=== PATIENT | male | born 1945 | race African-American/Black ===

== ENCOUNTER 2018-03-19 11:23 | Inpatient (IN) | payer OTHER ==
[~2018-03-19] VITALS: Ht 188 cm; Wt 50.3 kg
[~2018-03-19 11:23] MED LIST: AMBIEN10 MG PO; CHLORDIAZEPOXI1 EAC1 PO; DIPHENOXYLATE-1 EACH PO; DUONEB3 ML IH; FOLIC ACID; FOLIC ACID1 MG PO; HYDROMORPHONE HC2 MG PO; IRON; K-Dur PO; MEGACE ES625 MG/5 M PO; MOBIC15 MG PO; MORPHINE; NEXIUM; NEXIUM10 MG PO; PERCOCET; PERCOCET 5-3251 EACH PO; PERCOCET 5/31 TABLET PO; PREDNISONE20 MG PO; PROMETHAZINE HC25 M1 PO; PROVENTIL,2.5 MG/3 M IH; THIAMINE,VITAM100 MG PO; TRAVATAN 050 DROP/2. BOTH EYES; VITAMIN B1 PO; ZOLOFT50 M1 PO; [UNRECOGNIZED DRUG - OTHER] PO; [UNRECOGNIZED DRUG - OTHER] PO; [UNRECOGNIZED DRUG - REMARK]
[2018-03-19 12:17] LABS: APPEARANCE CLEAR ((CLEAR)); BILIRUBIN NEGATIVE; BLOOD MODERATE; COLOR YELLOW ((YELLOW)); GLUCOSE (STRIP) 50; KETONES 20; LEUKOCYTES NEGATIVE; NITRITE NEGATIVE; PROTEIN (STRIP) 100; SPECIFIC GRAVITY 1.012 (1.000-1.030); UROBILINOGEN 0.2 MG/DL (0.2-1.0)
[2018-03-19 12:20] LABS: BACTERIA NONE SEEN /HPF; EPITHELIAL CELLS RARE /HPF; HYALINE CASTS 15-20 /LPF; MUCUS TRACE /LPF; UCUL ADDED? NO; WHITE BLOOD CELLS 0-5 /HPF (0-5)
[2018-03-19 12:50] LABS: HEMATOCRIT 36.9 % (38.0-50.0); HEMOGLOBIN 12.8 G/DL (12.5-16.6); MCH 31.6 PG (29.0-34.0); MCHC 34.7 G/DL (30.0-36.0); MCV 91.1 FL (86-99); PLATELET COUNT 156 K/uL (156-360); RBC DIS.WIDTH-CV 15.3 % (11.8-14.6); RBC DIS.WIDTH-SD 49.5 % (39-53); RED BLOOD COUNT 4.05 M/uL (4.00-5.50)
[2018-03-19 13:01] LABS: ALBUMIN 4.3 g/dL (3.2-4.8); CHLORIDE 93 mEq/L (99-109); POTASSIUM 3.2 mEq/L (3.7-5.4); SODIUM 141 mEq/L (136-147)
[2018-03-19 13:03] LABS: GLUCOSE 151 mg/dL (70-99); TOTAL PROTEIN 8.1 g/dL (6.4-8.3)
[2018-03-19 13:05] LABS: TOTAL BILIRUBIN 0.8 mg/dL (0.0-1.0)
[2018-03-19 13:07] LABS: ALKALINE PHOSPHATASE 89 IU/L (3-129); GFR ESTIMATE (CALCULATED) > 59 mL/min/ (58.99-99999)
[2018-03-19 13:08] LABS: UREA NITROGEN (BUN) 10 mg/dL (9-23)
[2018-03-19 13:09] LABS: AST (GOT) 58 IU/L (2-34)
[2018-03-19 13:10] LABS: ALT (GPT) 16 IU/L (3-49); LIPASE 51 U/L (1.0-51.0)
[2018-03-19 13:11] LABS: TROP-I INTERPRETATION NEGATIVE; TROPONIN-I 0.03 ng/mL (0.0-0.30)
[2018-03-19 13:47] LABS: CREATINE KINASE 230 IU/L (1-294); TOTAL CK 230 IU/L (1-294)
[2018-03-19 13:48] LABS: SERUM ETHYL ALCOHOL < 10 mg/dL
[2018-03-19 13:53] LABS: SALICYLATE < 5.0 MG/DL (15-30)
[2018-03-19 13:54] LABS: CK-MB 7.8 ng/mL (0.0-4.9); CKMB RELATIVE INDEX 3.4 (0.0-3.9)
[2018-03-19] MEDS ORDERED: EXCEDRIN MIGRA1 EAC3 PO (15:32)
[2018-03-19] MEDS ORDERED: FOLIC ACID1 MG PO (15:32)
[2018-03-19] MEDS ORDERED: PERCOCET 5/31 TABLET PO (15:33)
[2018-03-19 19:39] VITALS: BP 136/80
[2018-03-20] VITALS (7 sets, daily range): BP systolic 99–141; BP diastolic 56–76
[2018-03-20 06:47] LABS: CHLORIDE 101 MEQ/L (99-109); CREATININE 0.9 MG/DL (0.6-1.3); GFR ESTIMATE (CALCULATED) > 59 mL/min/ (58.99-99999); GLUCOSE 148 mg/dL (70-99); POTASSIUM 3.7 MEQ/L (3.7-5.4); SODIUM 138 MEQ/L (136-147); UREA NITROGEN (BUN) 7 mg/dL (9-23)
[2018-03-20 07:21] LABS: HEMATOCRIT 30.5 % (38.0-50.0); MCH 30.6 PG (29.0-34.0); MCHC 34.4 G/DL (30.0-36.0); MCV 88.9 FL (86-99); PLATELET COUNT 119 K/uL (156-360); RBC DIS.WIDTH-CV 15.5 % (11.8-14.6); RED BLOOD COUNT 3.43 M/uL (4.00-5.50); WHITE BLOOD COUNT 5.4 K/uL (4.1-10.2)
[2018-03-20 07:24] LABS: HEMOGLOBIN 10.5 G/DL (12.5-16.6)
[2018-03-21 03:55] VITALS: BP 117/63
[2018-03-21 06:28] LABS: ALBUMIN 2.8 G/DL (3.2-4.8); ALKALINE PHOSPHATASE 49 IU/L (3-129); ALT (GPT) 8 IU/L (3-49); AST (GOT) 24 IU/L (2-34); CHLORIDE 104 MEQ/L (99-109); CREATININE 0.8 MG/DL (0.6-1.3); GFR ESTIMATE (CALCULATED) > 59 mL/min/ (58.99-99999); POTASSIUM 3.3 MEQ/L (3.7-5.4); SODIUM 139 MEQ/L (136-147); TOTAL BILIRUBIN 0.4 MG/DL (0.0-1.0); TOTAL PROTEIN 5.2 G/DL (6.4-8.3); UREA NITROGEN (BUN) 5 mg/dL (9-23)
[2018-03-21 06:30] LABS: GLUCOSE 94 mg/dL (70-99)
[2018-03-21 07:02] VITALS: BP 117/60
[2018-03-21 08:45] LABS: MAGNESIUM 1.6 mg/dl (1.3-2.7)
[2018-03-21 11:16] VITALS: BP 122/76
[2018-03-21 15:24] VITALS: BP 115/63
[2018-03-21 20:00] VITALS: BP 122/70
[2018-03-21 23:59] VITALS: BP 120/67
[2018-03-22 07:20] VITALS: BP 131/67
[2018-03-22 10:18] LABS: CHLORIDE 102 MEQ/L (99-109); GFR ESTIMATE (CALCULATED) > 59 mL/min/ (58.99-99999); SODIUM 138 MEQ/L (136-147); UREA NITROGEN (BUN) 8 mg/dL (9-23)
[2018-03-22 10:21] LABS: GLUCOSE 155 mg/dL (70-99); POTASSIUM 4.2 MEQ/L (3.7-5.4)
[2018-03-22 15:00] VITALS: BP 152/77
[2018-03-22 23:28] VITALS: BP 123/67
[2018-03-23 07:48] VITALS: BP 123/61
[2018-03-23] MEDS ORDERED: NICOTINE PATCH1 EAC2 TD (08:14)
[2018-03-23] MEDS ORDERED: SERTRALINE HCL25 MG PO (08:15)
[2018-03-23] MEDS ORDERED: THERAGRAN1 TABLET PO (08:15)
[2018-03-23] MEDS ORDERED: THIAMINE HCL100 MG PO (08:15)
[2018-03-23] MEDS ORDERED: VENTOLIN HFA18 GM IH (08:20)
== END 2018-03-23 13:36 | disposition home or self-care (01) | DRG 641 ==
LOC: EME 11:23 → 5EAST 16:03 → EDOF 16:03 → ENRESERV 16:07 → ENRESERVTM 16:51 → ENRESERV 16:51 → 5EAST 17:32
PROVIDERS: Emergency Medicine; Hospitalist; Physician Assistant
DX: E16.2 Hypoglycemia, unspecified (principal); F10.230 Alcohol dependence with withdrawal, uncomplicated; R56.9 Unspecified convulsions; J44.9 Chronic obstructive pulmonary disease, unspecified; R13.10 Dysphagia, unspecified; E86.0 Dehydration; K86.1 Other chronic pancreatitis; K86.81 Exocrine pancreatic insufficiency; K21.9 Gastro-esophageal reflux disease without esophagitis; F32.9 Major depressive disorder, single episode, unspecified; K70.30 Alcoholic cirrhosis of liver without ascites; F12.10 Cannabis abuse, uncomplicated; F17.200 Nicotine dependence, unspecified, uncomplicated; E87.6 Hypokalemia; E87.2 Acidosis; F41.9 Anxiety disorder, unspecified; H40.9 Unspecified glaucoma; J32.3 Chronic sphenoidal sinusitis; Z86.73 Personal history of transient ischemic attack (TIA), and cerebral infarction without residual deficits
CPT/HCPCS: 70450; 71045; 74230; 80048; 80053; 81003; 82550; 82553; 82948; 83605; 83690; 83735; 84484; 85027; 87040; 92610 GN; 92611 GN; 93005; 94640; 94760; 94799; 95819; 97530 GP; 99281; 99285; G0480; J1644; J2405; J3475; J7030; J7042